=== PATIENT | female | born 1985 | race Caucasian/White ===

== ENCOUNTER 2022-08-22 06:06 | Inpatient (IN) | payer OTHER ==
[2022-08-22] MEDS ORDERED: NALOXONE HCL 0.4 MG/ML VIAL IM PRN (06:49)
[2022-08-22] MEDS ORDERED: BISMUTH SUBSALICYLATE 524 MG/30 ML PO PRN (06:49)
[2022-08-22] MEDS ORDERED: NALOXONE HCL (KLOXXADO) 8 MG SPRAY NS PRN (06:49)
[2022-08-22] MEDS ORDERED: BENZONATATE 200 MG CAPSULE PO PRN (06:49)
[2022-08-22] MEDS ORDERED: IBUPROFEN 400 MG TABLET (FP) PO PRN (06:49)
[2022-08-22] MEDS ORDERED: guaiFENesin 600 MG TABLET.ER (FP) PO PRN (06:49)
[2022-08-22] MEDS ORDERED: LOPERAMIDE HCL 2 MG CAPSULE PO PRN (06:49)
[2022-08-22] MEDS ORDERED: POLYETHYLENE GLYCOL (HEALTHYLAX) 3350 17 GM PACKET PO PRN (06:49)
[2022-08-22] MEDS ORDERED: BENZOCAINE/MENTHOL (CHLORASEPTIC ) LOZENGE MM PRN (06:49)
[2022-08-22] MEDS ORDERED: diazePAM 5 MG TABLET PO PRN (06:51)
[2022-08-22 07:29] VITALS: BMI 28.8
[2022-08-22] MEDS ORDERED: methaDONE HCL 10 MG TABLET (FOR DETOX USE ONLY) PO ONE (08:00)
[2022-08-22] MEDS ORDERED: methaDONE HCL 10 MG TABLET (FOR DETOX USE ONLY) ONE (08:30)
[2022-08-22] MEDS ORDERED: TUBERCULIN PPD 5 TU/0.1ML VIAL ID ONE (09:27)
[2022-08-22] MEDS: NICOTINE 21 MG/24 HOURS TOPICAL PATCH TD SCH (09:38)
[2022-08-22] MEDS: cloNIDine HCL 0.1 MG TABLET PO PRN ×2 (09:38→16:33)
[2022-08-22] MEDS: ONDANSETRON *ODT* 4 MG TABLET SL PRN (09:38)
[2022-08-22] MEDS: PRENATAL VITAMINS W/ FOLIC ACID TABLET (FP) PO SCH (09:38)
[2022-08-22] MEDS: LORazepam 2 MG TABLET PO SCH ×3 (10:09→22:30)
[2022-08-22] MEDS: IBUPROFEN 600 MG TABLET (FP) PO PRN ×2 (10:12→23:05)
[2022-08-22] MEDS ORDERED: PATIENT'S OWN MEDICATION (NON-FORMULARY) (Dextroamphetamine/Amphetamine [Adderall 10 Mg Ta PO SCH (14:00)
[2022-08-22] MEDS: MAG HYDROX/AL HYDROX/SIMETH 30 ML UNIT-DOSE CUP PO PRN (16:33)
[2022-08-22] MEDS: LORazepam 1 MG TABLET PO PRN (18:58)
[2022-08-22] MEDS: MELATONIN 5 MG TABLETS PO SCH (22:29)
[2022-08-22] MEDS: THIAMINE HCL 100 MG TABLET (FP) PO SCH (22:29)
[2022-08-23] MEDS: LORazepam 1 MG TABLET PO PRN (01:44)
[2022-08-23] MEDS: LORazepam 2 MG TABLET PO SCH ×4 (05:23→23:40)
[2022-08-23] MEDS: MAGNESIUM HYDROX 2400MG/30ML ORAL SUSPENSION 30 ML CUP PO PRN (05:24)
[2022-08-23] MEDS: DICYCLOMINE HCL 10 MG CAPSULE PO PRN (06:18)
[2022-08-23 09:41] LABS: HEMATOCRIT 40.3 % (32.4-45.2); HEMOGLOBIN 13.6 GM/dL (10.7-15.3); MCH 27.4 pg (25.7-33.7); MCHC 33.8 g/dl (32.0-36.0); MEAN CELL VOLUME 81.2 fl (80-96); MEAN PLT VOLUME 8.8 fl (7.5-11.1); PLATELET COUNT 176 10^3/uL (134-434); RBC 4.96 M/mm3 (3.60-5.2)
[2022-08-23 09:44] LABS: BLOOD UREA NITROGEN 8.7 mg/dL (7-18); CALCIUM 9.7 mg/dL (8.5-10.1)
[2022-08-23 09:47] LABS: CREATININE 0.9 mg/dL (0.55-1.3)
[2022-08-23 09:49] LABS: BILIRUBIN,TOTAL 1.1 mg/dL (0.2-1)
[2022-08-23] MEDS: PRENATAL VITAMINS W/ FOLIC ACID TABLET (FP) PO SCH (10:32)
[2022-08-23] MEDS: NICOTINE 21 MG/24 HOURS TOPICAL PATCH TD SCH (10:34)
[2022-08-23] MEDS: NICOTINE POLACRILEX 2 MG GUM BUC PRN (10:34)
[2022-08-23] MEDS: ONDANSETRON *ODT* 4 MG TABLET SL PRN ×2 (10:36→20:49)
[2022-08-23] MEDS: DEXTROAMPHETAMINE/AMPHETAMINE 10 MG CAP.ER.24H PO SCH (11:31)
[2022-08-23] MEDS: cloNIDine HCL 0.1 MG TABLET PO PRN ×3 (12:53→22:21)
[2022-08-23] MEDS: ACETAMINOPHEN 325 MG TABLET (FP) PO PRN (17:13)
[2022-08-23] MEDS: MAG HYDROX/AL HYDROX/SIMETH 30 ML UNIT-DOSE CUP PO PRN (22:19)
[2022-08-23] MEDS: THIAMINE HCL 100 MG TABLET (FP) PO SCH (22:19)
[2022-08-23] MEDS: MELATONIN 5 MG TABLETS PO SCH (22:20)
[2022-08-24] MEDS: LORazepam 1 MG TABLET PO PRN (02:22)
[2022-08-24] MEDS: ACETAMINOPHEN 325 MG TABLET (FP) PO PRN ×2 (02:31→17:16)
[2022-08-24] MEDS: LORazepam 1 MG TABLET PO SCH ×4 (05:03→22:35)
[2022-08-24] MEDS: cloNIDine HCL 0.1 MG TABLET PO PRN ×4 (07:11→22:32)
[2022-08-24] MEDS: DEXTROAMPHETAMINE/AMPHETAMINE 10 MG CAP.ER.24H PO SCH (07:24)
[2022-08-24] MEDS: NICOTINE POLACRILEX 2 MG GUM BUC PRN (07:39)
[2022-08-24] MEDS ORDERED: methaDONE HCL 10 MG TABLET (FOR DETOX USE ONLY) PO ONE (10:00)
[2022-08-24] MEDS: PRENATAL VITAMINS W/ FOLIC ACID TABLET (FP) PO SCH (10:17)
[2022-08-24] MEDS: NICOTINE 21 MG/24 HOURS TOPICAL PATCH TD SCH (10:18)
[2022-08-24] MEDS: ONDANSETRON *ODT* 4 MG TABLET SL PRN ×2 (10:19→17:17)
[2022-08-24] MEDS: DICYCLOMINE HCL 10 MG CAPSULE PO PRN (10:19)
[2022-08-24] MEDS: MAG HYDROX/AL HYDROX/SIMETH 30 ML UNIT-DOSE CUP PO PRN (10:22)
[2022-08-24] MEDS: METHOCARBAMOL 500 MG TABLET PO PRN ×2 (12:47→20:40)
[2022-08-24] MEDS: MAGNESIUM HYDROX 2400MG/30ML ORAL SUSPENSION 30 ML CUP PO PRN (17:16)
[2022-08-24] MEDS: THIAMINE HCL 100 MG TABLET (FP) PO SCH (22:32)
[2022-08-24] MEDS ORDERED: SUVOREXANT 10 MG TABLET PO ONE (22:46)
[2022-08-25] MEDS: LORazepam 0.5 MG TABLET PO PRN ×3 (03:00→20:47)
[2022-08-25] MEDS: METHOCARBAMOL 500 MG TABLET PO PRN ×3 (03:03→22:22)
[2022-08-25] MEDS: IBUPROFEN 600 MG TABLET (FP) PO PRN (03:16)
[2022-08-25] MEDS: LORazepam 0.5 MG TABLET PO SCH ×4 (05:12→22:23)
[2022-08-25] MEDS: ONDANSETRON *ODT* 4 MG TABLET SL PRN (05:57)
[2022-08-25] MEDS: DEXTROAMPHETAMINE/AMPHETAMINE 10 MG CAP.ER.24H PO SCH (07:33)
[2022-08-25] MEDS: NICOTINE 21 MG/24 HOURS TOPICAL PATCH TD SCH (10:48)
[2022-08-25] MEDS: PRENATAL VITAMINS W/ FOLIC ACID TABLET (FP) PO SCH (10:48)
[2022-08-25] MEDS: BENZOCAINE 20 % GEL TUBE MM PRN (15:16)
[2022-08-25] MEDS ORDERED: cloNIDine HCL 0.1 MG TABLET PO ONE (15:30)
[2022-08-25] MEDS: SUVOREXANT 15 MG TABLET PO PRN (22:22)
[2022-08-25] MEDS: THIAMINE HCL 100 MG TABLET (FP) PO SCH (22:22)
[2022-08-26] MEDS ORDERED: LORazepam 0.5 MG TABLET PO ONE (05:00)
[2022-08-26] MEDS: METHOCARBAMOL 500 MG TABLET PO PRN ×2 (07:31→21:42)
[2022-08-26] MEDS ORDERED: methaDONE HCL 10 MG TABLET (FOR DETOX USE ONLY) PO ONE (10:00)
[2022-08-26] MEDS: DEXTROAMPHETAMINE/AMPHETAMINE 10 MG CAP.ER.24H PO SCH (10:07)
[2022-08-26] MEDS: PRENATAL VITAMINS W/ FOLIC ACID TABLET (FP) PO SCH (10:09)
[2022-08-26] MEDS: ONDANSETRON *ODT* 4 MG TABLET SL PRN (10:10)
[2022-08-26] MEDS: NICOTINE 21 MG/24 HOURS TOPICAL PATCH TD SCH (10:11)
[2022-08-26 17:13] VITALS: RESP 18
[2022-08-26] MEDS: THIAMINE HCL 100 MG TABLET (FP) PO SCH (21:42)
[2022-08-26] MEDS: SUVOREXANT 15 MG TABLET PO PRN (21:43)
[2022-08-26] MEDS: DICYCLOMINE HCL 10 MG CAPSULE PO PRN (21:43)
[2022-08-27] MEDS: ONDANSETRON *ODT* 4 MG TABLET SL PRN ×2 (00:52→09:31)
[2022-08-27] MEDS: BENZOCAINE 20 % GEL TUBE MM PRN (00:52)
[2022-08-27] MEDS ORDERED: TRIMETHOBENZAMIDE HCL 200MG/2ML INJ IM ONE (02:26)
[2022-08-27] MEDS: METHOCARBAMOL 500 MG TABLET PO PRN (05:41)
[2022-08-27] MEDS: DEXTROAMPHETAMINE/AMPHETAMINE 10 MG CAP.ER.24H PO SCH (09:28)
[2022-08-27] MEDS: PRENATAL VITAMINS W/ FOLIC ACID TABLET (FP) PO SCH (09:28)
[2022-08-27] MEDS: NICOTINE 21 MG/24 HOURS TOPICAL PATCH TD SCH (09:29)
[2022-08-27 09:38] VITALS: BP 118/88; PULSE 87; TEMP 98.3
== END 2022-08-27 10:10 | disposition home or self-care (01) | DRG 773 ==
LOC: YASAS 06:06 → Y6N 08:31
PROVIDERS: ADMIT Allergy & Immunology; ATTEND Surgery
PROC: HZ2ZZZZ Detoxification Services for Substance Abuse Treatment (ICD-10-PCS; principal; 2022-08-22)
DX: F11.23 Opioid dependence with withdrawal (principal); F13.20 Sedative, hypnotic or anxiolytic dependence, uncomplicated; F17.210 Nicotine dependence, cigarettes, uncomplicated; F41.1 Generalized anxiety disorder; F32.A Depression, unspecified; F90.9 Attention-deficit hyperactivity disorder, unspecified type; G47.00 Insomnia, unspecified; Z86.59 Personal history of other mental and behavioral disorders; Z88.0 Allergy status to penicillin; Z59.00 Homelessness unspecified
CPT/HCPCS: 36415; 80053; 81025; 85027; 86780; 87811; 93005; 93010; C9803-CS; Q0162; U0003; U0005

== ENCOUNTER 2023-10-26 15:40 | Inpatient (IN) | payer OTHER ==
[2023-10-26 17:03] VITALS: BMI 26.2
[2023-10-26] MEDS ORDERED: NALOXONE (NARCAN) HCL 4 MG/0.1 ML SPRAY NS PRN (18:11)
[2023-10-26] MEDS ORDERED: POLYETHYLENE GLYCOL (HEALTHYLAX) 3350 17 GM PACKET PO PRN (18:11)
[2023-10-26] MEDS ORDERED: BISMUTH SUBSALICYLATE 524 MG/30 ML PO PRN (18:11)
[2023-10-26] MEDS ORDERED: IBUPROFEN 600 MG TABLET (FP) PO PRN (18:11)
[2023-10-26] MEDS ORDERED: BENZONATATE 200 MG CAPSULE PO PRN (18:11)
[2023-10-26] MEDS ORDERED: MAGNESIUM HYDROX 2400MG/30ML ORAL SUSPENSION 30 ML CUP PO PRN (18:11)
[2023-10-26] MEDS ORDERED: NICOTINE POLACRILEX 2 MG LOZENGE BC PRN (18:11)
[2023-10-26] MEDS ORDERED: BENZOCAINE/MENTHOL (CHLORASEPTIC ) LOZENGE MM PRN (18:11)
[2023-10-26] MEDS ORDERED: P-EPHED 60MG/TRIPROLIDI 2.5MG TABLET PO PRN (18:11)
[2023-10-26] MEDS ORDERED: guaiFENesin 600 MG TABLET.ER (FP) PO PRN (18:11)
[2023-10-26] MEDS ORDERED: ACETAMINOPHEN 325 MG TABLET (FP) PO PRN (18:11)
[2023-10-26] MEDS ORDERED: LOPERAMIDE HCL 2 MG CAPSULE PO PRN (18:11)
[2023-10-26] MEDS ORDERED: MAG HYDROX/AL HYDROX/SIMETH 30 ML UNIT-DOSE CUP PO PRN (18:11)
[2023-10-26] MEDS ORDERED: NALOXONE HCL 0.4 MG/ML VIAL IM PRN (18:11)
[2023-10-26] MEDS ORDERED: methaDONE HCL 10 MG TABLET (FOR DETOX USE ONLY) ONE (18:29)
[2023-10-26] MEDS: methaDONE HCL 10 MG TABLET (FOR DETOX USE ONLY) PO ONE (18:32)
[2023-10-26] MEDS: diazePAM 5 MG TABLET PO PRN (19:46)
[2023-10-26] MEDS: cloNIDine HCL 0.1 MG TABLET PO PRN (19:46)
[2023-10-26] MEDS: THIAMINE 100 MG TABLET PO SCH (21:59)
[2023-10-26] MEDS: MELATONIN 5 MG TABLETS PO SCH (21:59)
[2023-10-26] MEDS: METHOCARBAMOL 500 MG TABLET PO PRN (21:59)
[2023-10-26] MEDS: ONDANSETRON *ODT* 4 MG TABLET SL PRN (23:07)
[2023-10-27] MEDS: IBUPROFEN 400 MG TABLET (FP) PO PRN (04:08)
[2023-10-27] MEDS: NICOTINE POLACRILEX 2 MG GUM BUC PRN (08:38)
[2023-10-27] MEDS: PRENATAL VITAMINS W/ FOLIC ACID TABLET (FP) PO SCH (09:12)
[2023-10-27] MEDS: NICOTINE 14 MG/24 HOURS TOPICAL PATCH TD SCH (11:03)
[2023-10-27] MEDS: PANTOPRAZOLE 40 MG TABLET PO SCH (14:19)
[2023-10-27] MEDS: GABAPENTIN 400 MG CAPSULE PO SCH (14:19)
[2023-10-27] MEDS ORDERED: QUEtiapine FUMARATE 50 MG TABLET PO SCH (22:00)
[2023-10-28] MEDS: SERTRALINE HCL 50 MG TABLET (FP) PO SCH (09:20)
[2023-10-28] MEDS: methaDONE HCL 10 MG TABLET (FOR DETOX USE ONLY) PO ONE (09:21)
[2023-10-28] MEDS: DEXTROAMPHETAMINE/AMPHETAMINE 20 MG CAP.ER.24H PO SCH (09:45)
[2023-10-28] MEDS ORDERED: FLUoxetine HCL 10 MG TABLET PO SCH (10:00)
[2023-10-28 12:04] LABS: HEMOGLOBIN 12.2 GM/dL (10.7-15.3); MCH 28.2 pg (25.7-33.7); MCHC 33.8 g/dl (32.0-36.0); MEAN CELL VOLUME 83.3 fl (80-96); MEAN PLT VOLUME 8.4 fl (7.5-11.1); PLATELET COUNT 234 10^3/uL (134-434); RBC 4.32 M/mm3 (3.60-5.2); RDW 13.9 % (11.6-15.6); WHITE BLOOD COUNT 6.3 K/mm3 (4.0-10.0)
[2023-10-28 12:10] LABS: POTASSIUM 4.1 mmol/L (3.5-5.1)
[2023-10-28 12:29] LABS: ALBUMIN 3.3 g/dl (3.4-5.0); BLOOD UREA NITROGEN 9.9 mg/dL (7-18); CALCIUM 9.1 mg/dL (8.5-10.1)
[2023-10-28 12:32] LABS: CREATININE 0.7 mg/dL (0.55-1.3)
[2023-10-28 12:35] LABS: BILIRUBIN,TOTAL 0.7 mg/dL (0.2-1); TOT PROT 7.3 g/dl (6.4-8.2)
[2023-10-28] MEDS: DICYCLOMINE HCL 10 MG CAPSULE PO PRN (14:03)
[2023-10-29] MEDS: hydrOXYzine PAMOATE 25 MG CAPSULE (FP) PO PRN (14:20)
[2023-10-29] MEDS: cloNIDine HCL 0.1 MG TABLET PO PRN (14:20)
[2023-10-30] MEDS: methaDONE HCL 10 MG TABLET (FOR DETOX USE ONLY) PO ONE (09:03)
[2023-10-30 09:13] VITALS: BP 107/61; PULSE 73; RESP 18; TEMP 98.7
== END 2023-10-30 09:19 | disposition home or self-care (01) | DRG 773 ==
LOC: YASAS 15:40 → Y3N 19:20
PROVIDERS: ADMIT Allergy & Immunology; ATTEND Family Medicine Addiction Medicine
PROC: HZ2ZZZZ Detoxification Services for Substance Abuse Treatment (ICD-10-PCS; principal; 2023-10-26)
DX: F11.23 Opioid dependence with withdrawal (principal); F10.230 Alcohol dependence with withdrawal, uncomplicated; F14.20 Cocaine dependence, uncomplicated; F13.20 Sedative, hypnotic or anxiolytic dependence, uncomplicated; F17.210 Nicotine dependence, cigarettes, uncomplicated; Z87.820 Personal history of traumatic brain injury; Z86.59 Personal history of other mental and behavioral disorders; Z88.0 Allergy status to penicillin
CPT/HCPCS: 36415; 80053; 80305; 80307; 81025; 85027; 86780; 93005; 93010; Q0162